=== PATIENT | female | born 1990 | race Caucasian/White ===

== ENCOUNTER 2016-08-15 18:33 | Observation (INO) | payer MEDICAID ==
[~2016-08-15] VITALS: Ht 152.4 cm; Wt 73.0 kg
--- NOTE | ~2016-08-15 | ER ---
PATIENT'S NAME: NADIYA SCHRADER [facility] AGE: 25 Y [address] ROOM: [place] [address] LOCATION: GPED ADMIT DATE: 08/15/2016 ER/Outpatient Report DISCHARGE DATE: FAMILY PHYSICIAN: Arnie Go MD ATTENDING PHYSICIAN: Arnie Go Admission date and time documented in the medical record. I saw the patient at 1845 hours. CHIEF COMPLAINT: Left distal lower leg, ankle, foot pain. HISTORY OF PRESENT ILLNESS: The patient is a 25-year-old female, about 24 hours prior fell, injuring her left distal lower leg, ankle, and foot. She said it popped about 4 times. She had to crawl on the floor to get to her wheelchair. The patient does have cerebral palsy. She has had multiple operations on this left ankle, foot, lower leg. She was given 100 mcg of fentanyl en route in the ambulance. The patient was brought to the emergency room by paramedics via ambulance. The patient is awake, alert, cooperative. Complaining greatly of pain. Crying. No open wounds. No gross deformities of the ankle. I did remove the air splint. No other injuries. No other complaints. She is on hydrocodone at home. Last dose was at 0330 hours this afternoon. HOME MEDICATIONS: See attached medication list. ALLERGIES: NONE. SOCIAL HISTORY: The patient smokes half pack of cigarettes per day. Nondrinker. SIGNIFICANT PAST MEDICAL HISTORY: Cerebral palsy, depression, anxiety, congenital hip dysplasia, degenerative disk disease, tobacco abuse, suicide ideation. OPERATIONS: Dorsal rhizotomy, skin graft, multiple musculoskeletal surgeries for cerebral palsy, right eye surgery, cholecystectomy, right hand surgery, right foot surgery. REVIEW OF SYSTEMS: All systems reviewed by me are negative with the exception of those discussed in the history of present illness. PATIENT'S NAME: NADIYA SCHRADER [facility] AGE: 25 Y [address] ROOM: [place] [address] LOCATION: ED ADMIT DATE: 08/15/2016 ER/Outpatient Report DISCHARGE DATE: FAMILY PHYSICIAN: Arnie Go MD ATTENDING PHYSICIAN: Arnie Go PHYSICAL EXAMINATION: VITAL SIGNS: Temperature 98 tympanic, pulse 84, respiratory rate 22, blood pressure 131/82, O2 saturation on room air is 94%. HEAD: Normocephalic. No abrasion, contusion, laceration, or swelling of the scalp or face. EYES, EARS, NOSE, THROAT: Clear. NECK: Negative. LUNGS: Clear. HEART: Regular. ABDOMEN: Soft, nontender. Good bowel tones. SPINE: Intact. PELVIS: Stable. EXTREMITIES: Moves all 4 extremities. Has tenderness in the left distal lower leg, ankle, and foot. No deformity. Pulses intact. Neurovascularly intact. LABORATORY AND X-RAYS DATA: X-ray of the pelvis, left hip, left knee, left ankle, left foot showed no fracture or dislocation. We will review x-ray with the radiologist. EMERGENCY DEPARTMENT COURSE: I did place the patient in a CAM walking boot. In addition to 100 mcg of fentanyl given IV en route, she was given Valium 4 mg IV x2, Toradol 30 mg, and Dilaudid 0.5 mg IV in the emergency room for pain and spasm, continued to cry out with pain. IMPRESSION: Left distal lower leg, ankle, foot injury from a fall with intractable pain. PLAN: Discussed the patient with Dr. Bowman for Dr. Arnie Go. We will admit the patient for observation. Pain control. Spasm control. MD MANDIE MENA/modl /[id number] d: 08/16/16 0059 t: 08/16/16 1812, OUTPATIENT REPORT
--- NOTE | ~2016-08-15 | HP ---
PATIENT'S NAME: NADIYA SCHRADER [facility] AGE: 25 Y [address] ROOM: [place] [address] LOCATION: GPED ADMIT DATE: 08/15/2016 History & Physical DISCHARGE DATE: FAMILY PHYSICIAN: Arnie Go MD ATTENDING PHYSICIAN: Arnie Go DATE OF SERVICE: 08/15/2016 CHIEF COMPLAINT: "I fell on my ankle." HISTORY OF PRESENT ILLNESS: Ms. Schrader is a 25-year-old female with past medical history significant for depression, anxiety, and cerebral palsy, status post multiple surgeries, who presents as admission to the [facility] from the emergency department for left ankle pain status post fall. The patient was in her usual state of health when she fell around 1900 hours on 08/14/2016. The patient states that she falls a lot and that she thought this would get better. She did have a falling injury where she had some pain on the inner part of her ankle. She had no numbness or tingling. No significant weakness. The patient did report she had significant spasms. She continued with pain at home until that she could not bear it anymore and she was crawling, at which time she decided to call the EMS for transportation to the emergency department. Upon reaching the emergency department, the patient's weight was 73.7 kg, height 5 feet, blood pressure 131/82, pulse 84, respirations 22, temperature 98, and oxygen saturation 94% on room air. The patient continued to complain of severe left ankle pain. She was administered Valium, Toradol, and Dilaudid without significant improvement in her pain. Because of that, a decision was made to admit the patient. She did have a left lower extremity x-ray, which was reported to not have any acute findings. Upon my discussion with the patient, she was complaining of significant amount of pain. She said the pain was in the inner part of her ankle. Hard to move and just sit. She tells me that the medications that she has been given, have taken the edge off, but have not completely controlled her pain. ALLERGIES: NO KNOWN DRUG ALLERGIES. MEDICATIONS LIST: Per the patient, 1. Celexa. 2. Vistaril. 3. Lamictal. PATIENT'S NAME: NADIYA SCHRADER [facility] AGE: 25 Y [address] ROOM: [place] [address] LOCATION: GPED ADMIT DATE: 08/15/2016 History & Physical DISCHARGE DATE: FAMILY PHYSICIAN: Arnie Go MD ATTENDING PHYSICIAN: Arnie Go 4. Minipress. 5. Remeron. 6. MiraLAX. 7. Zofran. 8. [place]. Per the patient's chart at the [facility], she is only taking [place] and Ultram but none of these other medications. REVIEW OF SYSTEMS: Negative except for those noted in the HPI. PAST MEDICAL HISTORY: 1. Cerebral palsy. 2. Anxiety. 3. Depression. 4. Tobacco abuse. PAST SURGICAL HISTORY: 1. Appendectomy. 2. Lumbar rhizotomy. 3. Multiple orthopedic surgeries from which the patient have scars on all 4 extremities. The patient tells me that she has "too many to count.". SOCIAL HISTORY: The patient currently lives in [place] and is engaged. She has not yet set the date for their wedding with her fiance. She does not currently work. She does smoke a half pack per day and has done so since age 18. She does not drink alcohol. She denies any other drugs at this time. FAMILY HISTORY: Both parents are alive. Both parents have diabetes mellitus, non-insulin requiring. There is family history of heart disease as well as cancer. PHYSICAL EXAMINATION: VITALS: As noted above. HEAD: Normocephalic, atraumatic. EYES: Conjunctivae clear. Sclerae white. The patient does have amblyopia. ENT: Mucous membranes moist. HEART: Regular rate and rhythm without murmurs, rubs, clicks, or gallops. LUNGS: Clear to auscultation in all campo bilaterally. ABDOMEN: Soft, nontender, nondistended. Bowel sounds positive. EXTREMITIES: Warm and well perfused. No clubbing, cyanosis, or edema. NEUROLOGIC: Cranial nerves 2 through 12 grossly intact. MUSCULOSKELETAL: Severe tenderness to even light palpation of the medial PATIENT'S NAME: NADIYA SCHRADER [facility] AGE: 25 Y [address] ROOM: [place] [address] LOCATION: GPED ADMIT DATE: 08/15/2016 History & Physical DISCHARGE DATE: FAMILY PHYSICIAN: Arnie Go MD ATTENDING PHYSICIAN: Arnie Go malleolus distally as well as the deltoid ligament area and the calcaneus. The patient does have 4-5/5 strength in plantar flexion and dorsiflexion, though she does have some pain with these movements. She has significant pain with resisted inversion and eversion, so it is really unable to complete that testing. LABORATORY AND IMAGING DATA: As per HPI. IMPRESSION, REPORT, AND PLAN: A 25-year-old female with intractable left lower extremity pain. 1. Left ankle pain status post trauma on 08/14/2016. 2. Refractory pain to treatment: I had a discussion with the patient about her current findings. This includes negative x-rays as well as negative workup so far. The patient does have extreme amount of pain of which she tells me that the medications thus far has only really taken the edge off. She is being admitted for pain control and further workup. I will put her on Tylenol 1000 mg q.i.d. as well as Dilaudid and Toradol. She may also have Valium as needed for any sort of muscular spasm. Essentially, we will continue with same medications as in the ER and see if we can get this thing calm down. Additionally, the patient lives by herself and it is reasonable to admit her for observation as she does not have anyone that would be able to help her should she have significant issue. I have also planned for the patient to get an MRI in the morning of the left ankle to further evaluate. Should we not be able to get an MRI or if the MRI has significant findings, we will have Orthopedics involved at that point in time. 3. Anxiety/depression: The patient does have a history of anxiety and depression and per records of the [facility], is not taking any medication for it. However, on the patient's home medication list, she does have Celexa, Vistaril, and Lamictal as well as Remeron noted. We will confirm with pharmacy what medication she was actually taking to get her started appropriately. 4. Tobacco abuse: The patient will not be allowed to smoke while in the hospital. We will offer her a nicotine patch. 5. Cerebral palsy: The patient usually is in a wheelchair. We will have her up with assist only. We will perform routine home cares for her. 6. Fluids: None. 7. Electrolytes: No need to check unless there is a clinical suspicion. 8. Nutrition: General diet. 9. Prophylaxis: The patient likely will not be in line of prophylaxis, but we can definitely do sequential compression devices. 10. Code status: Full code per my discussion with the patient. 11. Disposition: The patient will be observation here tonight. We will proceed with the plan as outlined above tonight, and should there be PATIENT'S NAME: NADIYA SCHRADER [facility] AGE: 25 Y [address] ROOM: [place] [address] LOCATION: [facility] ADMIT DATE: 08/15/2016 History & Physical DISCHARGE DATE: FAMILY PHYSICIAN: Arnie Go MD ATTENDING PHYSICIAN: Arnie Go acute worsening, I will be notified. Unfortunately, the patient's primary care physician, Dr. Arnie Go is out of town. I will assume this patient's care throughout the duration of her hospitalization. I also encouraged the patient to have more frequent regular visits with Dr. Go given her issues here. She was seen in the emergency department and admitted back in February for a similar sort of issue with her hip. More frequent regular visits to her primary care physician may help with some of these issues. MD LEIF TORRES/modl /[id number] D: 415 T: HISTORY & PHYSICAL
--- NOTE | ~2016-08-15 | CON ---
PATIENT'S NAME: NADIYA SCHRADER [facility] AGE: 25 Y [address] ROOM: [place] [address] LOCATION: GPED ADMIT DATE: 08/15/2016 Consultation DISCHARGE DATE: 08/16/2016 FAMILY PHYSICIAN: Arnie Go MD ATTENDING PHYSICIAN: Arnie Go DATE OF CONSULTATION: 08/16/2016 REFERRING PHYSICIAN: Ivan Reeves MD CHIEF COMPLAINT/REASON FOR CONSULTATION: Ankle pain. HISTORY OF PRESENT ILLNESS: Ms. Schrader is a 25-year-old female with a history of cerebral palsy. She has had issues with depression and anxiety in the past. She had a fall three days ago onto this left ankle. She had a fall and injury on the inner part of her ankle. She typically uses a scooter for motion, but she will occasionally bear weight. She continues to have pain. She was brought in by EMS to the emergency room. She does see Dr. Potts for pain management. ALLERGIES: NO KNOWN DRUG ALLERGIES. MEDICATIONS: Per the admission record. REVIEW OF SYSTEMS: As per the HPI. PAST MEDICAL HISTORY: 1. Cerebral palsy. 2. Tobacco abuse. 3. Depression. PAST SURGICAL HISTORY: 1. Appendectomy. 2. Lumbar rhizotomy. SOCIAL HISTORY: She lives in [place]. She denies any other drugs other than tobacco at this time. PHYSICAL EXAMINATION: GENERAL APPEARANCE: She is awake, she is alert, and she is oriented to person, place, and time. PATIENT'S NAME: NADIYA SCHRADER [facility] AGE: 25 Y [address] ROOM: [place] [address] LOCATION: GPED ADMIT DATE: 08/15/2016 Consultation DISCHARGE DATE: 08/16/2016 FAMILY PHYSICIAN: Arnie Go MD ATTENDING PHYSICIAN: Arnie Go HEENT: Normocephalic and atraumatic. LUNGS: Unlabored respirations on room air. ABDOMEN: Nondistended. AND RECTAL: Deferred. EXTREMITIES: Right lower extremity; the skin is intact. There is no erythema, there is no ecchymosis, and there is no induration. No pain over the right hip, right knee, or right ankle. Left lower extremity; the skin is intact. There is no warmth, there is no erythema. She has passive motion of about 10 degrees of passive dorsiflexion, about 30 degrees of passive plantar flexion. She does have some tenderness over the medial malleolus as well as some mild tenderness over the dorsum of the foot. She is able to demonstrate slight flexion and extension through the great toe although it is limited. She says that it is her baseline. IMAGING STUDIES: MRI was reviewed which shows a little bit of edema there within the dorsum of the subcutaneous tissues of the foot, but no other abnormalities. No ankle effusion is present. PLAN: At this point, she is a 25-year-old with cerebral palsy, who comes in with ankle pain. To me, she had a trauma approximately three days ago. She behaves like kind of a routine ankle sprain. No effusion. No significant edema. No signs of an infection. I told her that she can use a CAM boot for comfort, but she does not have to wear it. I recommend some outpatient physical therapy. No surgical indications are noted. We will plan on having her followup with the routine physician. MD CLAYTON MOROCHO/aaron /[id number] d: 08/16/165 t: 08/19/162141, CONSULTATION REPORT
[~2016-08-15 18:33] MED LIST changes: -EFFEXOR XR150 MG PO; -EXCEDRIN MIGRA1 EACH PO; -NICODE TOP; -NORCO 5-325 TA1 EACH PO; -VENLAFAXINE H37.5 MG PO
--- NOTE | 2016-08-16 04:55 | NUR ---
STORY: Patient fell 08/14 at her home. Presented to ED with left ankle pain on 08/15. Xray negative for fracture. NEURO: A&O x 3. CP. Hands contractured. Bilateral foot drop. CARDIO: WNL. RESP: CLear. Upper 90's on RA. GI/: BSC with strong 2 assist. Regular diet. SKIN: Multiple old healed scars. CAM boot applied and removed in ER d/t intolerance. IV: Right AC. SL. ACTIVITY: Uses motorized scooter at home. Reportedly can takes a few steps, and pivot transfers independently at home. Tonight she was a strong 2 assist to pivot to commode. Probably don't want to do that again. PAIN: Toradol, Dilaudid, scheduled Tylenol, scheduled Valium, ice to bilateral sides of foot. PLAN: MRI this morning. Discharge when appropriate.
--- NOTE | 2016-08-16 06:30 | NUR ---
Patient arrived from ED via cart at 2325. Vitals upon arrival to unit WNL. Patient admitted for left ankle pain. Patient alert and oriented x 3. Patient c/o pain in left ankle upon arrival to floor. IV in left AC, SL. Admitting physician Dr. Bowman.
[2016-08-16 09:40] LABS: ALBUMIN 3.7 gm/dL (3.5-5.0); ALK PHOS 78 IU/L (33-138); ALT 35 IU/L (12-78); ANION GAP 11.2 (10.0-19.0); AST 31 IU/L (10-40); BLOOD UREA NITROGEN 13 mg/dL (6-24); CALCIUM 8.8 mg/dL (8.5-10.5); CHLORIDE 108 mMol/L (96-110); CO2 25 mMol/L (22-32); CREATININE 0.7 mg/dL (0.5-1.1); POTASSIUM 4.2 mMol/L (3.7-5.1); SODIUM 140 mMol/L (135-145); TOTAL BILIRUBIN 0.3 mg/dL (0.0-1.5)
[2016-08-16 09:47] LABS: ESTIMATED GFR (MDRD EQUATION) > 60
[2016-08-16 11:26] LABS: BASOPHIL # 0.1 K/uL (0.0-0.2); BASOPHIL % 0.6 %; EOSINOPHIL # 0.1 K/uL (0.0-0.5); EOSINOPHIL % 0.6 %; HEMATOCRIT 43.5 % (33.0-46.0); HEMOGLOBIN 14.5 g/dL (11.0-15.0); IMMATURE GRANULOCYTE % 0.2 %; LYMPHOCYTE # 3.1 K/uL (0.8-4.0); LYMPHOCYTE % 32.6 %; MCHC 33.3 gm/dL (32.0-36.5); MCV 90.1 fl (83.0-98.0); MONOCYTE # 0.6 K/uL (0.0-1.0); MONOCYTE % 6.8 %; MPV 10.5 fl (9.4-12.4); NEUTROPHIL # (ANC) 5.6 K/uL (1.8-7.8); NEUTROPHIL % 59.2 %; NRBC % 0 /100WBC (0-0.00); PLATELET COUNT 301 K/uL (150-450); RBC 4.83 M/uL (3.50-5.00); RDW-CV 13.5 % (11.9-14.6); WBC 9.4 K/uL (4.0-11.0)
[2016-08-16] MEDS ORDERED: NORCO 5-325 TA1 EACH PO (16:34)
[2016-12-14] MEDS ORDERED: NICODE TOP (10:45)
== END 2016-08-16 17:05 | disposition disaster alternative care site (69) ==
LOC: GACC 18:33 → GPED 22:43
PROVIDERS: Family Medicine; Orthopaedic Surgery Sports Medicine; ADMIT Family Medicine
DX: S93.402A Sprain of unspecified ligament of left ankle, initial encounter (principal); F41.9 Anxiety disorder, unspecified; F32.9 Major depressive disorder, single episode, unspecified; F17.210 Nicotine dependence, cigarettes, uncomplicated; R45.851 Suicidal ideations; Z87.828 Personal history of other (healed) physical injury and trauma; Z98.890 Other specified postprocedural states; Z90.49 Acquired absence of other specified parts of digestive tract; Z79.899 Other long term (current) drug therapy; W19.XXXA Unspecified fall, initial encounter
CPT/HCPCS: G0378; J1170; J1885; J3360

== ENCOUNTER → 2016-08-15 | Outpatient (CLI) | payer MEDICAID ==
[~2016-08-15] MED LIST: CELEXA40 MG PO; EFFEXOR XR150 MG PO; EXCEDRIN MIGRA1 EACH PO; LAMICTAL100 MG PO; LAMICTAL25 MG PO; LIDODERM 5% P1 PATCH TOP; LIORESAL10 MG PO; LYRICA 75MG CAP75 MG PO; MINIPRESS2 MG PO; MIRALAX17 GM PO; NICODE TOP; NORCO 5-325 MG1 TAB PO; NORCO 5-325 TA1 EACH PO; REMERON15 MG PO; ULTRAM50 MG PO; VENLAFAXINE H37.5 MG PO; VISTARIL25 M1 PO; VISTARIL50 MG PO; ZOFRAN4 MG PO
== END | disposition disaster alternative care site (69) ==
LOC: GAMB 18:00
DX: S99.912A Unspecified injury of left ankle, initial encounter (principal); M25.572 Pain in left ankle and joints of left foot; Z79.891 Long term (current) use of opiate analgesic; Z79.899 Other long term (current) drug therapy; W19.XXXA Unspecified fall, initial encounter
CPT/HCPCS: A0425; A0427; J3010

== ENCOUNTER 2016-12-10 23:47 | Observation (INO) | payer MEDICAID ==
[~2016-12-10] VITALS: Ht 157.5 cm; Wt 68.8 kg
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
--- NOTE | ~2016-12-10 | HP ---
PATIENT'S NAME: NADIYA SCHRADER [facility] AGE: 25 Y [address] ROOM: [place] [address] [place] [facility] [place]: 12/11/2016 History & Physical DISCHARGE DATE: FAMILY PHYSICIAN: PHYSICIAN, UNKNOWN ATTENDING PHYSICIAN: MARIAJOSE ALEXIS V DATE OF SERVICE: CHIEF COMPLAINT: Suicidal ideation/attempt. HISTORY OF PRESENT ILLNESS: The patient is a 25-year-old female with past medical history of cerebral palsy, status post dorsal rhizotomy with chronic pain due to arachnoiditis, questionable sacroiliitis as well as history of depression. The patient called the police today because she was having suicidal ideations and actually hit her head several times against a wall and was about to take some of her depression medications. She was brought to the ER where her workup was unremarkable. However, there is currently no beds in [facility] and the patient needs monitoring due to ongoing suicidal ideations. She denies any chest pain, shortness of breath, nausea, vomiting, diarrhea, or palpitations. She does; however, still admit to suicidal ideations, but at this point, she does not have an imminent plan. PAST MEDICAL HISTORY: Cerebral palsy, anxiety, depression, congenital left hip dysplasia, and degenerative disease of the lumbar spine. SURGICAL HISTORY: Include musculoskeletal surgeries for cerebral palsy and dorsal rhizotomy as well as strabismus surgery. FAMILY HISTORY: Reviewed and is noncontributory. SOCIAL HISTORY: Significant for ongoing tobacco use. CURRENT MEDICATIONS: Being compiled. PHYSICAL EXAMINATION: VITAL SIGNS: Blood pressure is 110/67, heart rate is 102, saturating 96% on room air. Afebrile. Respirations are 20. PATIENT'S NAME: NADIYA SCHRADER [facility] AGE: 25 Y [address] ROOM: [address] [address] [place] [facility] [place]: 12/11/2016 History & Physical DISCHARGE DATE: FAMILY PHYSICIAN: PHYSICIAN, UNKNOWN ATTENDING PHYSICIAN: MARIAJOSE ALEXIS V GENERAL: Appears as a well-developed, well-nourished, young female, in no acute distress. PSYCHIATRIC: Positive for ongoing suicidal ideations with a very flat affect. NEUROLOGICAL: Grossly nonfocal keeping in mind patient's prior neurologic deficits related to her cerebral palsy. LUNGS: Clear to auscultation. HEART: Rate is regular. GASTROINTESTINAL: Abdomen is soft, nontender, nondistended. GENITOURINARY: No costovertebral angle tenderness. LABORATORY DATA: Studies performed in the ER significant for potassium of 2.9 and a hemoglobin of 16.4 as well as a negative urine tox screen, negative Tylenol level, and a negative salicylate level. ASSESSMENT AND PLAN: This is a 25-year-old female, who will be admitted for observation and one-to- one supervision due to active suicidal ideations. We will correct her potassium. We will provide her with a nicotine patch for her ongoing tobacco use. We will request for [facility] transfer once the bed is available. Additional management will depend on clinical course. Time dedicated to this patient's encounter is 25 minutes. MD GERRY ROBERSON/aaron /[id number] D: [id number] T: [id number] HISTORY & PHYSICAL
[~2016-12-10 23:47] MED LIST changes: -EFFEXOR XR150 MG PO; -EXCEDRIN MIGRA1 EACH PO; -NICODE TOP; -VENLAFAXINE H37.5 MG PO
[2016-12-11 00:25] LABS: BASOPHIL # 0.1 K/uL (0.0-0.2); BASOPHIL % 0.6 %; EOSINOPHIL # 0.1 K/uL (0.0-0.5); EOSINOPHIL % 0.5 %; HEMATOCRIT 46.1 % (33.0-46.0); HEMOGLOBIN 16.4 g/dL (11.0-15.0); IMMATURE GRANULOCYTE % 0.3 %; LYMPHOCYTE # 2.8 K/uL (0.8-4.0); LYMPHOCYTE % 25.1 %; MCH 31.5 pg (27.0-34.0); MCHC 35.6 gm/dL (32.0-36.5); MCV 88.7 fl (83.0-98.0); MONOCYTE # 0.6 K/uL (0.0-1.0); MONOCYTE % 5.6 %; MPV 10.1 fl (9.4-12.4); NEUTROPHIL # (ANC) 7.7 K/uL (1.8-7.8); NEUTROPHIL % 67.9 %; NRBC % 0 /100WBC (0-0.00); PLATELET COUNT 313 K/uL (150-450); RDW-CV 12.6 % (11.9-14.6); WBC 11.3 K/uL (4.0-11.0)
[2016-12-11 00:55] LABS: ANION GAP 10.9 (10.0-19.0); CHLORIDE 104 mMol/L (96-110); CO2 26 mMol/L (22-32); POTASSIUM 2.9 mMol/L (3.7-5.1); SODIUM 138 mMol/L (135-145)
[2016-12-11 00:56] LABS: ALBUMIN 4.1 gm/dL (3.5-5.0); ALK PHOS 86 IU/L (33-138); ALT 35 IU/L (12-78); AST 24 IU/L (10-40); BLOOD UREA NITROGEN 7 mg/dL (6-24); CREATININE 0.8 mg/dL (0.5-1.1); TOTAL BILIRUBIN 0.5 mg/dL (0.0-1.5); TOTAL PROTEIN 7.9 g/dL (6.0-8.4)
[2016-12-11 01:37] LABS: BILIRUBIN URINE NEGATIVE (NEGATIVE); BLOOD URINE NEGATIVE /UL (NEGATIVE); COLOR URINE YELLOW (YELLOW); GLUCOSE URINE NEGATIVE (NEGATIVE); KETONE URINE NEGATIVE (NEGATIVE); LEUKOCYTES URINE 25 /UL (NEGATIVE); NITRITE URINE NEGATIVE (NEGATIVE); PROTEIN URINE NEGATIVE (NEGATIVE); TURBIDITY URINE CLEAR (CLEAR); UROBILINOGEN URINE 1 mg/dL (NORMAL)
[2016-12-11 01:46] LABS: BACTERIA URINE MODERATE (NEGATIVE); RBC URINE NEGATIVE #/HPF (NEGATIVE)
[2016-12-11 01:56] LABS: AMPHETAMINE NEGATIVE (NEGATIVE); BARBITURATE NEGATIVE (NEGATIVE); COCAINE NEGATIVE (NEGATIVE); OPIATES NEGATIVE (NEGATIVE)
[2016-12-11] MEDS ORDERED: EFFEXOR XR150 MG PO (05:09)
[2016-12-11] MEDS ORDERED: VENLAFAXINE H37.5 MG PO (05:10)
--- NOTE | 2016-12-11 07:40 | NUR ---
Significant Event: ADMIT FOR SUICIDE IDEATION. PATIENT STATES SHE HAS NO CURRENT THOUGHT TO HARM SELF, DOES HAVE PLAN BUT DOES NOT WANT TO ACT IT OUT AT THIS TIME. DOES WANT TO GET HELP. NO IV ACCESS, MD ORDER. PSYCH CONSULT THIS AM. K+ LOW AND GAVE 60mEq PO KCL. TEARFUL AT TIMES. OCCASIONAL HEADACHE. ANXIOUS AT TIMES. CONTINUES 1:1 OBSERVATION. TO [facility] WHEN ROOM AVAILABLE TODAY. Follow up:
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
[2016-12-11] MEDS ORDERED: EXCEDRIN MIGRA1 EACH PO (08:31)
--- NOTE | 2016-12-11 08:38 | NUR ---
NOTE: Spoke with patient this AM, oriented to virtual program. Patient rates anxiety and depression both 10/10. States she is suicidal with a plan to stab herself with a knife. Contracts for safety and feels safe in hospital. Notified primary nurse.
--- NOTE | 2016-12-11 09:53 | NUR ---
Phone call at 0820 from Caren at [facility] stating they do not know if they will have a bed available for patient. If they do have a bed, it will not be until after 1100 today. She did indicate that they contacted [facility] to see if they have beds available, but she has not heard back from them at this time. Will notify doctor that patient will not be able to discharge until after 1100 due to bed availability. Will follow up with Caren closer to 1100 to get update on beds.
--- NOTE | 2016-12-11 16:50 | NUR ---
Patient transfered to [facility] via EMS/ambulance. Stable condition. Nicoderm patch on her L) upper arm. No IV was accessed during this stay. She was in a 1:1 while here. Stood and pivoted to get into the wheelchair prior to transfer per [facility] requirements with [facility].
[2016-12-14] MEDS ORDERED: NICODE TOP (10:45)
== END 2016-12-11 16:50 | disposition other institution (70) ==
LOC: GMED 23:47 → GMSU 12-11 02:10
PROVIDERS: Emergency Medicine; ADMIT Internal Medicine
DX: R45.851 Suicidal ideations (principal); F32.9 Major depressive disorder, single episode, unspecified; F41.1 Generalized anxiety disorder; E87.6 Hypokalemia; G80.9 Cerebral palsy, unspecified; G89.4 Chronic pain syndrome; Z72.0 Tobacco use; Q65.89 Other specified congenital deformities of hip; Z98.890 Other specified postprocedural states
CPT/HCPCS: G0378; G0480

== ENCOUNTER → 2016-12-10 | Outpatient (CLI) | payer MEDICAID ==
[~2016-12-10] MED LIST changes: +EFFEXOR XR150 MG PO; +EXCEDRIN MIGRA1 EACH PO; +NICODE TOP; +NORCO 5-325 TA1 EACH PO; +VENLAFAXINE H37.5 MG PO
== END | disposition disaster alternative care site (69) ==
LOC: GAMB 23:28
DX: T14.91 Suicide attempt (principal); G80.9 Cerebral palsy, unspecified; Z79.891 Long term (current) use of opiate analgesic; Z79.899 Other long term (current) drug therapy
CPT/HCPCS: A0425; A0429

== ENCOUNTER → 2016-12-11 | Outpatient (CLI) | payer MEDICAID ==
[~2016-12-11] MED LIST changes: +EFFEXOR XR150 MG PO; +EXCEDRIN MIGRA1 EACH PO; +NICODE TOP; +VENLAFAXINE H37.5 MG PO
== END | disposition disaster alternative care site (69) ==
LOC: GAMB 16:52
DX: T14.91 Suicide attempt (principal); G80.9 Cerebral palsy, unspecified; Z79.899 Other long term (current) drug therapy; Z79.891 Long term (current) use of opiate analgesic
CPT/HCPCS: A0425; A0428

== ENCOUNTER 2017-02-05 19:15 | Emergency (ER) | payer MEDICAID ==
--- NOTE | ~2017-02-05 | ER ---
PATIENT'S NAME: NADIYA SCHRADER [facility] AGE: 26 Y [address] ROOM: [place] [address] LOCATION: [facility] ADMIT DATE: 02/05/2017 ER/Outpatient Report DISCHARGE DATE: 02/05/2017 FAMILY PHYSICIAN: Arnie Go MD ATTENDING PHYSICIAN: Mello Jones Time of Patient Arrival: 1915 hours. Time of Patient Evaluation: 1930 hours. CHIEF COMPLAINT: Foot laceration. HISTORY OF PRESENT ILLNESS: This is a 26-year-old female, who presents to the ER who lacerated her foot approximately 2 hours prior to arrival. The patient states that she was trying to open up the door and she cut her foot on a nail. She states that she is not for sure when her last tetanus shot was. Denies any other problems at this time. PAST MEDICAL HISTORY: 1. Cerebral palsy. 2. Anxiety. 3. Depression. 4. Congenital left hip dysplasia and degenerative disease of the lumbar spine. PAST SURGICAL HISTORY: Multiple musculoskeletal surgeries for cerebral palsy and dorsal rhizotomy as well as strabismus surgery. SOCIAL HISTORY: Denies any drinking, but does smoke cigarettes. REVIEW OF SYSTEMS: CONSTITUTIONAL: Denies any change in weight or fatigue. MUSCULOSKELETAL: No weakness or myalgias. HEMATOLOGIC: No easy bruising or bleeding. SKIN: She has a left foot laceration. PHYSICAL EXAMINATION: VITAL SIGNS: Blood pressure is 141/81, pulse 94, respirations 18, temperature 97.5 degrees tympanically, and saturations 98% on room air. Jian Coma Score is 15. GENERAL: Alert, calm, well-developed female, in no acute distress. She does ride in, in her motorized wheelchair. PATIENT'S NAME: NADIYA SCHRADER [facility] AGE: 26 Y [address] ROOM: [place] [address] LOCATION: [facility] ADMIT DATE: 02/05/2017 ER/Outpatient Report DISCHARGE DATE: 02/05/2017 FAMILY PHYSICIAN: Arnie Go MD ATTENDING PHYSICIAN: Mello Jones EXTREMITIES: No cyanosis. She has good sensation to all of her toes on her left foot. She does have her full normal range of motion of all of her extremities. SKIN: She has a 2 cm laceration noted to the base of the volar side of her left pinky toe. It is right in the crease of that toe line. LABORATORY DATA AND X-RAYS: None were done. IMPRESSION: A 2-cm laceration to the base of the left pinky toe. ASSESSMENT AND PLAN: I cleansed the site with normal saline. I numbed the site with 1% lidocaine. Cleansed thoroughly with Betadine, flushed thoroughly with normal saline, and repaired the laceration using 4-0 Ethilon. The patient did tolerate this well. We did place antibiotic ointment and bandage to the foot. We did update her on her tetanus shot. She may take Tylenol as needed. Return for any pain control. She needs to keep the foot clean and dry and should follow up with her primary care physician in 7-10 days for suture removal. Sent her with a prescription for Ultram to use as directed. The patient understands and agrees with care. BARBARA REARDON PA-C FOR MD YOLANDA MENA/aaron /[id number] d: t: 02/11/17 1239, OUTPATIENT REPORT
== END 2017-02-05 20:01 | disposition disaster alternative care site (69) ==
LOC: GACC 19:15
PROC: 0HQNXZZ Repair Left Foot Skin, External Approach (ICD-10-PCS; principal; 2017-02-05)
DX: S91.115A Laceration without foreign body of left lesser toe(s) without damage to nail, initial encounter (principal); F41.9 Anxiety disorder, unspecified; F32.9 Major depressive disorder, single episode, unspecified; Q65.89 Other specified congenital deformities of hip; F17.210 Nicotine dependence, cigarettes, uncomplicated; G80.9 Cerebral palsy, unspecified; Z98.890 Other specified postprocedural states; Z23 Encounter for immunization; Z79.899 Other long term (current) drug therapy; W45.0XXA Nail entering through skin, initial encounter